=== PATIENT | female | born 1980 | race African-American/Black ===

== ENCOUNTER 2023-05-12 13:14 | Emergency (ER) | payer OTHER ==
[2023-05-12 13:58] VITALS: RESP 19; BMI 25.6
[2023-05-12] MEDS ORDERED: ACETAMINOPHEN 500 MG TABLET (FP) PO ONE (14:25)
[2023-05-12] MEDS ORDERED: KETOROLAC TROMETHAMINE 30 MG/1 ML VIAL IM ONE (18:43)
[2023-05-12 19:13] LABS: BASO % 0.8 % (0-2.0); EOS % 1.4 % (0-4.5); HEMOGLOBIN 11.2 GM/dL (10.7-15.3); LYMPH % 42.4 % (8-40); MCH 27.8 pg (25.7-33.7); MCHC 32.9 g/dl (32.0-36.0); MEAN CELL VOLUME 84.5 fl (80-96); MONO % 9.1 % (3.8-10.2); NEUT % 46.3 % (42.8-82.8); PLATELET COUNT 166 10^3/uL (134-434); RBC 4.03 M/mm3 (3.60-5.2); RDW 16.5 % (11.6-15.6)
[2023-05-12] MEDS ORDERED: KETOROLAC TROMETHAMINE 30 MG/1 ML VIAL ONE (19:28)
[2023-05-12 19:33] LABS: POTASSIUM 3.8 mmol/L (3.5-5.1)
[2023-05-12 19:34] LABS: CALCIUM 8.9 mg/dL (8.5-10.1)
[2023-05-12 19:38] LABS: CREATININE 0.6 mg/dL (0.55-1.3)
[2023-05-12 19:40] LABS: BILIRUBIN,TOTAL 0.2 mg/dL (0.2-1)
[2023-05-12 23:12] VITALS: BP 112/78; PULSE 78; TEMP 97.9
== END 2023-05-12 23:12 | disposition home or self-care (01) ==
LOC: JER 13:14
PROC: 3E0233Z Introduction of Anti-inflammatory into Muscle, Percutaneous Approach (ICD-10-PCS; principal; 2023-05-12)
DX: R53.81 Other malaise (principal); R68.89 Other general symptoms and signs; W19.XXXA Unspecified fall, initial encounter; Y92.009 Unspecified place in unspecified non-institutional (private) residence as the place of occurrence of the external cause
CPT/HCPCS: 0241U-QW; 36415; 70450-TC; 80053; 84703; 85025; 93005; 93010; 99285-25